=== PATIENT | female | born 1995 | race Caucasian/White ===

== ENCOUNTER 2017-10-20 20:40 | Emergency (ER) | END 2017-10-20 22:10 | disposition home or self-care (01) ==

== ENCOUNTER 2018-12-04 18:16 | Inpatient (IN) | payer MEDICAID ==
[~2018-12-04] VITALS: Ht 154.9 cm; Wt 69.5 kg
[~2018-12-04 18:16] MED LIST: CYCL10TA7 PO; FERR134T PO; IBUP-1542 PO; Lanolin Hpa TOP; SENOKOTS PO; TUCKS PR
[2018-12-04 19:23] VITALS: BP 134/77; PULSE 78; RESP 18
[2018-12-04 19:26] VITALS: Ht 154.9 cm; Wt 69.5 kg
[2018-12-04] MEDS ORDERED: METHYLERGONOVINE 0.2 MG INJ IM PRN (19:30)
[2018-12-04] MEDS ORDERED: LIDOCAINE 1% (MPF) 30 ML INJ INJ PRN (19:30)
[2018-12-04] MEDS ORDERED: OXYTOCIN 30 UNITS/LR 500 ML IV PRN (19:30)
[2018-12-04] MEDS ORDERED: BUTORPHANOL 2 MG INJ IV PRN ×2 (19:30)
[2018-12-04] MEDS ORDERED: AMPICILLIN 2 GM/NS (PMX) 100 ML IV ONE (19:30)
[2018-12-04] MEDS ORDERED: MISOPROSTOL 200 MCG TAB PR PRN (19:30)
[2018-12-04] MEDS ORDERED: OXYTOCIN 30 UNITS/LR 500 ML IV SCH ×3 (19:30)
[2018-12-04] MEDS ORDERED: IBUPROFEN 600 MG TAB PO PRN (19:30)
[2018-12-04] MEDS ORDERED: CARBOPROST 250 MCG INJ IM PRN (19:30)
[2018-12-04] MEDS: LACTATED RINGER'S 1,000 ML IV SCH ×2 (19:42→21:33)
[2018-12-04] MEDS ORDERED: AMPICILLIN 1 GM/NS (PMX) 50 ML IV SCH (23:30)
[2018-12-05] MEDS: LACTATED RINGER'S 1,000 ML IV SCH (00:18)
[2018-12-05] MEDS: LACTATED RINGER'S 1,000 ML IV* SCH ×4 (02:20→11:05)
[2018-12-05] MEDS ORDERED: OXYTOCIN 30 UNITS/LR 500 ML IV SCH (02:20)
[2018-12-05] MEDS ORDERED: OXYTOCIN 30 UNITS/LR 500 ML IV PRN (02:30)
[2018-12-05] MEDS ORDERED: METHYLERGONOVINE 0.2 MG INJ IM PRN (02:30)
[2018-12-05] MEDS ORDERED: SENNA/DOCUSATE NA (8.6MG/50MG) TAB PO PRN (02:30)
[2018-12-05] MEDS ORDERED: BENZOCAINE 20% 56 ML SPRAY TOP PRN (02:30)
[2018-12-05] MEDS ORDERED: MAGNESIUM HYDROXIDE 30ML CUP PO PRN (02:30)
[2018-12-05] MEDS ORDERED: WITCH HAZEL/GLYCERIN PAD PR PRN (02:30)
[2018-12-05] MEDS ORDERED: IBUPROFEN 600 MG TAB PO PRN (02:30)
[2018-12-05] MEDS ORDERED: LANOLIN HPA 1 PKT TOP PRN (02:30)
[2018-12-05] MEDS ORDERED: DIBUCAINE 1% 30 GM OINT TOP PRN (02:30)
[2018-12-05] MEDS ORDERED: ACETAMINOPHEN 325 MG TAB PO PRN ×2 (02:30)
[2018-12-05] MEDS ORDERED: MISOPROSTOL 200 MCG TAB PR PRN (02:30)
[2018-12-05] MEDS ORDERED: CARBOPROST 250 MCG INJ IM PRN (02:30)
[2018-12-05] MEDS ORDERED: ONDANSETRON 4 MG INJ IV PRN (02:30)
[2018-12-05 03:45] VITALS: BP 131/69; PULSE 64; RESP 18
[2018-12-05 08:30] VITALS: BP 118/75; PULSE 60; RESP 18
[2018-12-05 16:15] VITALS: BP 116/56; PULSE 67; RESP 18
[2018-12-06 08:30] VITALS: BP 103/63; PULSE 72; RESP 18
[2018-12-06 15:59] VITALS: BP 121/61; PULSE 75; RESP 18
[2018-12-06] MEDS: LACTATED RINGER'S 1,000 ML IV* SCH (18:20)
[2018-12-06 19:50] VITALS: BP 114/66; PULSE 74; RESP 18
[2018-12-06 20:05] VITALS: BP 114/66; PULSE 74; RESP 18
[2018-12-07 04:05] VITALS: BP 122/80; PULSE 61; RESP 18
[2018-12-07] MEDS: LACTATED RINGER'S 1,000 ML IV* SCH ×3 (04:35→11:38)
[2018-12-07 08:00] VITALS: BP 108/55; PULSE 65; RESP 18
[2018-12-07 15:45] VITALS: BP 118/79; PULSE 65; RESP 18
== END 2018-12-07 15:29 | disposition home or self-care (01) | DRG 807 ==
LOC: OBT 18:16 → L-D 18:19 → OBT 19:20 → L-D 19:30 → PP1 12-05 03:38
PROVIDERS: ADMIT Obstetrics & Gynecology Gynecology; ATTEND Obstetrics & Gynecology Gynecology
PROC: 10E0XZZ Delivery of Products of Conception, External Approach (ICD-10-PCS; principal; 2018-12-05)
PROC: 0KQM0ZZ Repair Perineum Muscle, Open Approach (ICD-10-PCS; 2018-12-05)
DX: O77.0 Labor and delivery complicated by meconium in amniotic fluid (principal); Z37.0 Single live birth; O70.1 Second degree perineal laceration during delivery; Z3A.40 40 weeks gestation of pregnancy
CPT/HCPCS: 76815; 80053; 80307; 81001; 85025; 85610; 85730; 86592; 86703; 86762; 86803; 86850; 86900; 86901; 87340; 88307; 99464; G0463; J0290; J2590; J7120